=== PATIENT | female | born 1980 | race Asian ===

== ENCOUNTER 2019-01-21 23:40 | Inpatient (IN) | payer OTHER ==
[2019-01-22] MEDS: DEXTROSE 5%-LACTATED RINGERS 1,000 ML IV SCH (00:30)
[2019-01-22] MEDS ORDERED: BUTORPHANOL TARTRATE 1 MG/ML VIAL IVPUSH PRN (00:39)
[2019-01-22] MEDS ORDERED: PROMETHAZINE HCL 25 MG/1 ML VIAL IVPUSH ONE (00:39)
--- NOTE | 2019-01-22 00:46 | HP ---
Past Medical History - Primary Care Physician PCP:: Butch Glez - Admission Chief Complaint: 38 weeks , SROM History Source: Patient Limitations to Obtaining History: No Limitations - Past Medical History ...: 2 ...Para: 1 ...EDC by Frederick: 02/04/19 - Past Surgical History Hx Myomectomy: No Hx Transabdominal Cerclage: No - Smoking History Smoking history: Never smoked Have you smoked in the past 12 months: No - Alcohol/Substance Use Hx Alcohol Use: No History of Substance Use: reports: None - Social History Usual Living Arrangement: Yes: With Spouse History of Recent Travel: No Home Medications - Allergies Allergies/Adverse Reactions: Allergies Allergy/AdvReac Type Severity Reaction Status Date / Time No Known Allergies Allergy Verified 12/13/14 14:18 - Home Medications Home Medications: Ambulatory Orders Vit/Iron Fumarate/FA [ Tablet] 1 each PO DAILY 12/13/14 Benzocaine [Americaine 20% [place] -] 1 spray TP PRN PRN #0 spraybtl 12/16/14 Ibuprofen [Motrin -] 600 mg PO Q4H PRN #0 tablet 12/16/14 Witch [place] 50% (Tucks) [Tucks Pads -] 1 pad TP PRN PRN #0 pad 12/16/14 Review of Systems - Review of Systems Constitutional: reports: No Symptoms Eyes: reports: No Symptoms HENT: reports: No Symptoms Neck: reports: No Symptoms Cardiovascular: reports: No Symptoms Respiratory: reports: No Symptoms Gastrointestinal: reports: No Symptoms Genitourinary: reports: No Symptoms Breasts: reports: No Symptoms Reported Musculoskeletal: reports: No Symptoms Integumentary: reports: No Symptoms Neurological: reports: No Symptoms Endocrine: reports: No Symptoms Hematology/Lymphatic: reports: No Symptoms Psychiatric: reports: No Symptoms Physical Exam - Maternity Constitutional: Yes: Well Nourished, No Distress, Calm Eyes: Yes: WNL, Conjunctiva Clear, EOM Intact HENT: Yes: WNL, Atraumatic, Normocephalic Neck: Yes: WNL, Supple, Trachea Midline Cardiovascular: Yes: WNL, Regular Rate and Rhythm Breast(s): Yes: WNL - Vaginal Exam/OB Vaginal Bleediing: No Speculum Exam: No Dilatation (cm): 2 Effacement (%): 75 Amniotic Membrane Status: Ruptured Nitrazine Test: Positive Amniotic Fluid: Yes: Clear Presentation: Vertex/Position Station: -3 - Physical Exam Musculoskeletal: Yes: WNL Extremities: Yes: WNL Edema: Yes Edema: LLE: Trace, RLE: Trace Deep Tendon Reflex Grade: Normal +2 Psychiatric: Yes: WNL Hemorrhage Risk Assessment - Risk Factors Medium Risk Factors: Yes: None High Risk Factors: Yes: None Risk Score: 1 Risk Level: Medium Risk Problem List - Problems (1) with 38 completed weeks gestation Code(s): Z3A.38 - 38 WEEKS GESTATION OF (2) membranes, spontaneous rupture Code(s): QKB7546 - Assessment/Plan admit GBS negative if contraction not regular with in few hours will start pitocin
[2019-01-22] MEDS ORDERED: OXYTOCIN 30 UNITS in 0.9% NS 30 UNIT/500 ML INFUS.BAG IVPB SCH (01:00)
[2019-01-22 01:32] VITALS: BMI 32.9
[2019-01-22 01:49] LABS: BLOOD UREA NITROGEN 8.2 mg/dL (7-18); CALCIUM 8.5 mg/dL (8.5-10.1); CREATININE 0.5 mg/dL (0.55-1.3); POTASSIUM 4.2 mmol/L (3.5-5.1)
[2019-01-22 01:56] LABS: BASO % 0.4 % (0-2.0); EOS % 1.1 % (0-4.5); HEMATOCRIT 32.6 % (32.4-45.2); HEMOGLOBIN 10.6 GM/dL (10.7-15.3); LYMPH % 14.5 % (8-40); MCH 28.2 pg (25.7-33.7); MCHC 32.5 g/dl (32.0-36.0); MEAN CELL VOLUME 86.7 fl (80-96); MEAN PLT VOLUME 8.2 fl (7.5-11.1); PLATELET COUNT 351 K/MM3 (134-434); RBC 3.76 M/mm3 (3.60-5.2); RDW 14.6 % (11.6-15.6); WHITE BLOOD COUNT 12.5 K/mm3 (4.0-10.0)
[2019-01-22] MEDS ORDERED: PROMETHAZINE HCL 25 MG/1 ML VIAL ONE (05:44)
[2019-01-22] MEDS ORDERED: BUTORPHANOL TARTRATE 1 MG/ML VIAL ONE ×2 (05:44)
[2019-01-22] MEDS ORDERED: OXYTOCIN 20 UNITS in 0.9% NS 20 UNIT/1,000 ML INFUS.BAG IV ONE (05:58)
[2019-01-22] MEDS ORDERED: BENZOCAINE 28 GM HEMORRHOIDAL OINTMENT TP PRN (06:57)
[2019-01-22] MEDS ORDERED: METHYLERGONOVINE MALEATE 0.2 MG/1 ML AMP IM PRN (06:57)
[2019-01-22] MEDS ORDERED: BENZOCAINE 20% 57 GM BOTTLE TP PRN (06:57)
[2019-01-22] MEDS ORDERED: WITCH HAZEL 50% (TUCKS) 40 PAD/JAR PAD TP PRN (06:57)
[2019-01-22] MEDS ORDERED: BISACODYL 10 MG SUPP.RECT RC PRN (06:57)
[2019-01-22] MEDS ORDERED: D5W-LR W/ 20 UNITS OXYTOCIN 20 UNIT/1,000 ML INFUS.BAG IV SCH (07:00)
[2019-01-22] MEDS ORDERED: ACETAMINOPHEN 325 MG TABLET (FP) ONE (07:23)
[2019-01-22] MEDS ORDERED: IBUPROFEN 600 MG TABLET (FP) PO ONE (07:23)
[2019-01-22] MEDS: OXYTOCIN 20 UNITS in 0.9% NS 20 UNIT/1,000 ML INFUS.BAG IV SCH (07:27)
[2019-01-22] MEDS: IBUPROFEN 600 MG TABLET (FP) PO PRN ×2 (07:30→21:49)
[2019-01-22] MEDS: ACETAMINOPHEN 325 MG TABLET (FP) PO PRN ×2 (07:30→21:49)
[2019-01-22] MEDS ORDERED: DIPHTH,PERTUSS(ACELL),TET 0.5 ML DISP.SYRIN IM ONE (09:05)
[2019-01-22 09:16] LABS: INR 0.85 (0.83-1.09)
[2019-01-22 09:18] LABS: ACTIVATED PTT 27.4 SECONDS (25.2-36.5)
[2019-01-22] MEDS: PRENATAL VITAMINS W/ FOLIC ACID TABLET (FP) PO SCH (09:24)
[2019-01-22] MEDS: FERROUS SO4 325 MG TABLET (FP) PO SCH ×2 (09:24→21:49)
--- NOTE | 2019-01-23 05:50 | PN ---
Post Progress Note - Subjective Subjective: Patient without acute complaints. Reports tolerating oral intake without nausea or vomiting. Ambulating without dizziness. Denies fevers or chills. Pain well controlled with oral pain medication. without difficulty. Passing flatus. Post Day: 1 Type of Delivery: Vital Signs: Vital Signs Temperature 98.7 F 01/23/19 01:00 Pulse Rate 88 01/23/19 01:00 Respiratory Rate 18 01/23/19 01:00 Blood Pressure 120/70 01/23/19 01:00 O2 Sat by Pulse Oximetry (%) Breast Exam: Yes: Soft Uterus: Yes: Fundus Firm, Fundus below umbilicus Abdomen/GI: Yes: Abdomen soft, Passing flatus, Tolerating PO. No: Abdominal Distention, Tender Lochia: Yes: Rubra Lochia, amount: Small Extremities: Yes: Calves non-tender. No: Edema Activity: Ambulating - Labs Labs: CBC WBC 12.5 K/mm3 (4.0-10.0) H 01/22/19 00:50 RBC 3.76 M/mm3 (3.60-5.2) 01/22/19 00:50 Hgb 10.6 GM/dL (10.7-15.3) L 01/22/19 00:50 Hct 32.6 % (32.4-45.2) D 01/22/19 00:50 MCV 86.7 fl (80-96) 01/22/19 00:50 MCH 28.2 pg (25.7-33.7) 01/22/19 00:50 MCHC 32.5 g/dl (32.0-36.0) 01/22/19 00:50 RDW 14.6 % (11.6-15.6) 01/22/19 00:50 Plt Count 351 K/MM3 (134-434) D 01/22/19 00:50 MPV 8.2 fl (7.5-11.1) 01/22/19 00:50 Absolute Neuts (auto) 9.2 K/mm3 (1.5-8.0) H 01/22/19 00:50 Neutrophils % 74.0 % (42.8-82.8) 01/22/19 00:50 Lymphocytes % 14.5 % (8-40) D 01/22/19 00:50 Monocytes % 10.0 % (3.8-10.2) 01/22/19 00:50 Eosinophils % 1.1 % (0-4.5) D 01/22/19 00:50 Basophils % 0.4 % (0-2.0) 01/22/19 00:50 Nucleated RBC % 0 % (0-0) 01/22/19 00:50 Assessment/Plan 38 yo PPD # 1 s/p , afebrile, vital signs stable, doing well 1. Continue routine care. 2. Follow up AM CBC 3. Rh positive status, no rhogam indicated. 4. Encourage ambulation 5. Continue oral pain medication 6. Anticipate discharge home day #2
[2019-01-23 08:11] LABS: BASO % 0.4 % (0-2.0); EOS % 1.5 % (0-4.5); HEMATOCRIT 30.4 % (32.4-45.2); HEMOGLOBIN 9.9 GM/dL (10.7-15.3); LYMPH % 15.1 % (8-40); MCH 28.2 pg (25.7-33.7); MCHC 32.5 g/dl (32.0-36.0); MEAN CELL VOLUME 86.8 fl (80-96); MEAN PLT VOLUME 7.8 fl (7.5-11.1); MONO % 7.3 % (3.8-10.2); NEUT % 75.7 % (42.8-82.8); PLATELET COUNT 275 K/MM3 (134-434); RBC 3.51 M/mm3 (3.60-5.2); RDW 14.2 % (11.6-15.6); WHITE BLOOD COUNT 12.2 K/mm3 (4.0-10.0)
[2019-01-23] MEDS: PRENATAL VITAMINS W/ FOLIC ACID TABLET (FP) PO SCH (10:31)
[2019-01-23] MEDS: FERROUS SO4 325 MG TABLET (FP) PO SCH ×2 (10:31→21:21)
[2019-01-23] MEDS: ACETAMINOPHEN 325 MG TABLET (FP) PO PRN (20:38)
[2019-01-23] MEDS: IBUPROFEN 600 MG TABLET (FP) PO PRN (20:38)
[2019-01-23] MEDS: DEXTROSE 5%-LACTATED RINGERS 1,000 ML IV SCH (21:41)
[2019-01-23] MEDS: OXYTOCIN 20 UNITS in 0.9% NS 20 UNIT/1,000 ML INFUS.BAG IV SCH (21:51)
[2019-01-23] MEDS ORDERED: SENNOSIDES/DOCUSATE COMBO (SENNA PLUS) TABLET (UD) PO PRN (22:00)
[2019-01-24 09:00] VITALS: BP 116/75; PULSE 81; TEMP 97.9
[2019-01-24] MEDS: FERROUS SO4 325 MG TABLET (FP) PO SCH (09:45)
[2019-01-24] MEDS: PRENATAL VITAMINS W/ FOLIC ACID TABLET (FP) PO SCH (09:45)
--- NOTE | 2019-01-24 11:46 | DS ---
Physical Exam-S[employer]ER Vital Signs: Vital Signs Temperature 97.9 F 01/24/19 08:56 Pulse Rate 81 01/24/19 08:56 Respiratory Rate 20 01/24/19 08:56 Blood Pressure 116/75 01/24/19 08:56 O2 Sat by Pulse Oximetry (%) Constitutional: Yes: Well Nourished, No Distress, Calm Eyes: Yes: WNL, Conjunctiva Clear HENT: Yes: WNL, Atraumatic, Normocephalic Neck: Yes: WNL, Supple, Trachea Midline Cardiovascular: Yes: WNL, Regular Rate and Rhythm Respiratory: Yes: WNL, Regular, CTA Bilaterally Gastrointestinal: Yes: WNL, Normal Bowel Sounds, Soft ...Rectal Exam: Yes: Deferred Renal/: Yes: WNL ....Post : Yes: Uterus firm, Uterus non-tender, Slight lochia rubra Breast(s): Yes: WNL Musculoskeletal: Yes: WNL Extremities: Yes: WNL Edema: Yes Edema: LLE: Trace, RLE: Trace Integumentary: Yes: WNL Neurological: Yes: WNL, Alert, Oriented ...Motor Strength: WNL Psychiatric: Yes: WNL, Alert, Oriented Labs: CBC, BMP 01/23/19 07:00 01/22/19 00:50 Delivery - Delivery Vaginal Delivery: No Problems, Spontaneous Type of Anesthesia: None Episiotomy/Laceration: None EBL (cc): 300 Delivery, Single - Stages of Labor Date 1st Stage Initiatied: 01/22/19 Time 1st Stage Initiated: 04:00 Date 2nd Stage Initiated: 01/22/19 Time 2nd Stage Initiated: 05:40 Date of Delivery: 01/22/19 Time of Delivery: 05:45 Time Placenta Delivered: 05:55 Placenta: Yes: Spontaneous, Normal Configuration - Condition of 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: No Infant Gender: Female Weight: 2.58 kg Position: Left, OA Total Hours ROM (Hrs/Mins): 6h55M - 1 Minute Total Score: 9 5 Minutes Total Score: 9 - [place] Feeding Plan Initial Plan: Exclusive throughout hospitalization Benefits of Exclusively reinforced: Yes Discharge Summary Reason For Visit: LABOR ADMIT Current Active Problems membranes, spontaneous rupture (Acute) with 38 completed weeks gestation (Acute) Procedures: Principal: Labor at term Other Procedures: [facility] Hospital Course: Normal recovery Condition: Good - Instructions Diet, Activity, Other Instructions: Physical activity Resume your normal everyday activity as tolerated no heavy lifting or exercise until seen by your surgeon. You may walk unlimited hector of and climb stairs. You may resume driving the car when you feel safe and comfortable behind the wheel. No sexual activity as instructed. Wound care If you have a bandage, leave it on, and keep dry for 48-72 hours. After that time discard the outer bandage. If they are tapes on the skin under the out of bandage leave them in place. They will peel off in the next 7 to 10 days. Do Not Peel them off. You may shower the day after surgery. If there are tapes present on the skin, you may shower over them. Diet There are no dietary restrictions. Eat healthy, high-fiber foods. Drink 6 to 8 glasses of liquid each day. This will assist in keeping your bowels are regular. Pain management You may take Tylenol or acetaminophen or Ibuprofen (for example, Motrin, Advil etc.) from my pain prescription medication is ordered should be taken as prescribed for moderate to severe pain. Call MD for any of the following: Severe pain not relieved by medication Fever of 101 or higher Excessive bleeding or drainage on dressing Inability to urinate Referrals: Nazia Segundo MD [Staff Physician] - Disposition: HOME - Home Medications Comprehensive Discharge Medication List: Ambulatory Orders Pnv No.95/Ferrous Fum/Folic AC [ Vitamin Tablet] 1 each PO DAILY
== END 2019-01-24 12:40 | disposition home or self-care (01) | DRG 807 ==
LOC: JLDR 23:40 → J3W 01-22 08:10
PROVIDERS: ADMIT Obstetrics & Gynecology; ATTEND Obstetrics & Gynecology
PROC: 10E0XZZ Delivery of Products of Conception, External Approach (ICD-10-PCS; principal; 2019-01-22)
DX: O80 Encounter for full-term uncomplicated delivery (principal); Z3A.38 38 weeks gestation of pregnancy; Z37.0 Single live birth
CPT/HCPCS: 36415; 59409; 80048; 85025; 85610; 85730; 86593; 86850; 86900; 86901; 90715